=== PATIENT | female | born 1960 | race Caucasian/White ===

== ENCOUNTER → 2022-12-17 10:53 | Outpatient (CLI) | payer OTHER, SELFPAY ==
--- NOTE | 2022-12-17 | DI.RAD.S_ITS ---
Bone Density Report Name: KAILYN CONDE Age: 62 Sex: Female Ethnicity: White Date of : 1960 Indication: osteopenia; monitoring treatment; Referring Provider: URBÉN ROME Study: Bone densitometry was performed. Exam Date: December 17, 2022 Accession number: [id number] Bone Density: Region BMD T-score Z-score Classification AP Spine(L1-L4) 0.764 -2.6 -1.1 Osteoporosis Femoral Neck (Left) 0.546 -2.7 -1.4 Osteoporosis Total Hip (Left) 0.708 -1.9 -0.9 Osteopenia Femoral Neck (Right) 0.587 -2.4 -1.1 Osteopenia Total Hip (Right) 0.767 -1.4 -0.5 Osteopenia Total Hip Mean 0.738 -1.7 -0.7 Osteopenia World Health Organization criteria for BMD impression classify patients as: Normal (T-score at or above -1.0), Osteopenia (T-score between -1.0 and -2.5), or Osteoporosis (T-score at or below -2.5). 10-year Fracture Risk: FRAX not reported because: Some T-score for Spine Total or Hip Total or Femoral Neck at or below -2.5 Treated for osteoporosis Previous Exams: -- Region Exam Age BMD T-score BMD Change BMD Change Date g/cm2 vs Baseline vs Previous -- AP Spine (L1-L4) 12/17/2022 62 0.764 -2.6 -0.077 (-9.2%)# -0.049 (-6.0%)# 09/30/2014 54 0.813 -2.1 -0.029 (-3.4%)* 0.003 (0.4%) 08/21/2013 53 0.809 -2.2 -0.032 (-3.9%)* 0.022 (2.8%) 09/09/2011 51 0.787 -2.4 -0.055 (-6.5%)* -0.004 (-0.5%) 03/16/2010 49 0.791 -2.3 -0.051 (-6.0%)* -0.051 (-6.0%)* 10/24/2007 47 0.842 Total Hip(Left) 12/17/2022 62 0.708 -1.9 -0.090 (-11.2%)# -0.049 (-6.4%)# 09/30/2014 54 0.757 -1.5 -0.041 (-5.1%)* -0.016 (-2.1%) 08/21/2013 53 0.774 -1.4 -0.024 (-3.1%) -0.032 (-4.0%)* 09/09/2011 51 0.806 -1.1 0.008 (1.0%) 0.028 (3.6%)* 03/16/2010 49 0.778 -1.3 -0.020 (-2.5%) -0.020 (-2.5%) 10/24/2007 47 0.798 Total Hip(Right) 12/17/2022 62 0.767 -1.4 -0.066 (-7.9%)# -0.050 (-6.1%)# 09/30/2014 54 0.817 -1.0 -0.016 (-2.0%) 0.002 (0.2%) 08/21/2013 53 0.815 -1.0 -0.018 (-2.2%) -0.002 (-0.2%) 09/09/2011 51 0.817 -1.0 -0.017 (-2.0%) 0.003 (0.3%) 03/16/2010 49 0.814 -1.1 -0.019 (-2.3%) -0.019 (-2.3%) 10/24/2007 47 0.833 -- *Denotes significance at 95% confidence level, LSC for AP Spine = 0.022 g/cm2, LSC for Total Hip = 0.027 g/cm2 # Denotes dissimilar scan types or analysis methods Impression: The patient has osteoporosis, based on the Left Femoral Neck T-score. No significant bone loss was observed. Discussion: PATIENT UNDER TREATMENT WITH NO SIGNIFICANT BMD LOSS SINCE LAST EXAM. In an untreated patient, BMD typically declines with age. A lack of decline or gain is usually a sign that treatment is efficacious and fracture risk is reduced. It is important to ask patients whether they are taking their medications and to encourage continued and appropriate compliance with their osteoporosis therapies to reduce fracture risk. It is also important to review their risk factors and encourage appropriate calcium and vitamin D intakes, exercise, fall prevention and other lifestyle measures. Follow-Up: Consider a repeat BMD and Vertebral Fracture Assessment (VFA) exam in 2 years or sooner if medically necessary, to reassess this patient's status. Reported by: RETA GARCIA M.D. on 12/17/2022 11:15:00 AM.
== END ==
PROVIDERS: PCP Physician Assistant; Referring Provider Internal Medicine; Visit Provider Internal Medicine
DX: M81.0 Age-related osteoporosis without current pathological fracture (principal); Z78.0 Asymptomatic menopausal state; Z90.710 Acquired absence of both cervix and uterus; Z79.83 Long term (current) use of bisphosphonates
CPT/HCPCS: 77080